=== PATIENT | male | born 2005 | race Caucasian/White ===

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

== ENCOUNTER 2024-09-03 19:20 | Emergency (ER) | payer OTHER ==
[~2024-09-03] VITALS: Ht 180.3 cm; Wt 70.3 kg
[~2024-09-03 19:20] MED LIST changes: +CEPH500 PO; +FAMO20 PO; +K-Dur20 MEQ PO; +ONDA4ODT MM; +OXYB5 PO
[2024-09-03 19:28] VITALS: BP 143/87
[2024-09-03] MEDS ORDERED: Acetaminophen 500 MG Tab PO ONE (19:30)
[2024-09-03] MEDS ORDERED: Ketorolac Tromethamine 15mg Vial IV ONE (21:00)
[2024-09-03] MEDS ORDERED: Ketorolac Tromethamine 30mg Vial IM ONE (23:55)
== END 2024-09-04 01:10 | disposition home or self-care (01) ==
LOC: ER 19:20
DX: S92.251A Displaced fracture of navicular [scaphoid] of right foot, initial encounter for closed fracture (principal); S92.321A Displaced fracture of second metatarsal bone, right foot, initial encounter for closed fracture; S92.354A Nondisplaced fracture of fifth metatarsal bone, right foot, initial encounter for closed fracture; S92.221A Displaced fracture of lateral cuneiform of right foot, initial encounter for closed fracture; S92.211A Displaced fracture of cuboid bone of right foot, initial encounter for closed fracture; V86.56XA Driver of dirt bike or motor/cross bike injured in nontraffic accident, initial encounter; Z79.899 Other long term (current) drug therapy; Z88.5 Allergy status to narcotic agent; Z88.8 Allergy status to other drugs, medicaments and biological substances
CPT/HCPCS: 29515; 73610; 73630; 73700; 96372-59; 96374; 99284-25; A9270; J1885

== ENCOUNTER 2024-12-22 18:11 | Emergency (ER) | payer OTHER ==
[~2024-12-22] VITALS: Ht 180.3 cm; Wt 70.3 kg
[2024-12-22 18:59] VITALS: BP 119/73
[2024-12-22] MEDS ORDERED: Triamcinolone Inj Susp 40 MG / ML 1ML Vial IM ONE (19:25)
== END 2024-12-22 19:37 | disposition home or self-care (01) ==
LOC: ER 18:11
DX: L23.7 Allergic contact dermatitis due to plants, except food (principal); Z88.5 Allergy status to narcotic agent; Z88.8 Allergy status to other drugs, medicaments and biological substances; Z59.89 Other problems related to housing and economic circumstances
CPT/HCPCS: 96372; 99283-25; J3301